=== PATIENT | male | born 1945 | race Caucasian/White ===

== ENCOUNTER → 2020-05-16 | Outpatient (CLI) | payer OTHER ==
[~2020-05-16] MED LIST: ALTACE5 M1 PO; AMOXICILLIN 50500 M1 PO; APAP500 PO; ASPIRIN325 PO; AUGMENTIN 875875 M1 PO; CALCIUM 500+D1 EAC3 PO; GLUCOSAMINE &1 EACH PO; LIPITOR40 MG PO; LORCET PLUS 7.51 TAB PO; LORTAB 5 MG/5001 TA1 PO; METHOTREXATE 22.5 MG PO; MOBIC15 MG PO; NASONEX17 GM INH; PHENERGAN25 M2 RE; PREDNISONE PO; THERAGRAN-M AD1 EACH PO; TOPROL XL50 MG PO; TUMS PO
== END ==
LOC: SJCVCIMAG 08:00
PROVIDERS: ATTEND Internal Medicine
DX: I44.0 Atrioventricular block, first degree (principal); R00.0 Tachycardia, unspecified; I65.23 Occlusion and stenosis of bilateral carotid arteries; I10 Essential (primary) hypertension; E78.5 Hyperlipidemia, unspecified; I25.810 Atherosclerosis of coronary artery bypass graft(s) without angina pectoris; C08.9 Malignant neoplasm of major salivary gland, unspecified; M06.9 Rheumatoid arthritis, unspecified; Z79.82 Long term (current) use of aspirin; Z79.899 Other long term (current) drug therapy; Z82.49 Family history of ischemic heart disease and other diseases of the circulatory system; Z87.891 Personal history of nicotine dependence; Z95.1 Presence of aortocoronary bypass graft